=== PATIENT | male | born 1965 | race Caucasian/White ===

== ENCOUNTER 2017-03-19 13:53 | Inpatient (IN) | payer BC ==
[~2017-03-19] VITALS: Ht 188 cm; Wt 131.5 kg
[2017-03-19 14:45] LABS: BASO # 0.1 x10^3/uL (0.0-0.2); BASO % 1 % (0-3); EOS % 2 % (0-3); HEMATOCRIT 50.4 % (39.0-53.0); HEMOGLOBIN 17.4 g/dL (13.0-17.5); LYMPH # 4.5 x10^3/uL (1.0-4.8); LYMPH % 34 % (24-48); MEAN CORPUSCULAR HEMOGLOBIN 33 pg (25-35); MEAN CORPUSCULAR HGB CONC 34 g/dL (31-37); MEAN CORPUSCULAR VOLUME 96 fL (79-100); MONO % 8 % (0-9); NEUT % 55 % (31-73); PLATELET COUNT 310 x10^3/uL (140-400); RED BLOOD COUNT 5.28 x10^6/uL (4.30-5.70); RED CELL DISTRIBUTION WIDTH 13.2 % (11.5-14.5); WHITE BLOOD COUNT 13.2 x10^3/uL (4.0-11.0)
[2017-03-19] MEDS ORDERED: IV NORMAL SALINE 1000ML BAG 1,000 ML IV ONE (14:45)
[2017-03-19] MEDS ORDERED: LABETALOL 20 MG/4 ML DISP.SYRIN. IVP ONE ×2 (14:45→16:45)
--- NOTE | 2017-03-19 14:49 | RAD ---
Portable chest, 03/19/2017: History: High blood pressure, dizziness The heart size and pulmonary vascularity are normal. No pulmonary infiltrates are seen. There is no evidence of pleural fluid. IMPRESSION: No acute cardiopulmonary abnormality is detected.
[2017-03-19 14:56] LABS: CALCIUM 9.1 mg/dL (8.5-10.1); CREATININE 0.9 mg/dL (0.7-1.3); GFR 89.3; POTASSIUM 4.1 mmol/L (3.5-5.1)
[2017-03-19] MEDS ORDERED: IOHEXOL 300 MG/ML 100ML VIAL. IV ONE (15:00)
[2017-03-19 15:01] LABS: ALBUMIN 4.3 g/dL (3.4-5.0); ALBUMIN/GLOBULIN RATIO 1.2 (1.0-1.7); TOTAL BILIRUBIN 0.9 mg/dL (0.2-1.0); TOTAL PROTEIN 7.8 g/dL (6.4-8.2)
[2017-03-19] MEDS ORDERED: ONDANSETRON PF 4 MG/2 ML VIAL. IV ONE (15:15)
[2017-03-19] MEDS ORDERED: CONTRAST GIVEN MC PRN (15:30)
--- NOTE | 2017-03-19 15:40 | RAD ---
Clinical indications: Dizziness today. Hypertension. Technique: Noncontrast axial cross sectional scanning of the head was performed. RS Compliance Statement: One or more of the following individualized dose reduction techniques were utilized for this examination: 1. Automated exposure control 2. Adjustment of the mA and/or kV according to patient size 3. Use of iterative reconstruction technique Findings: No acute intracranial hemorrhage or midline shift or mass-effect or hydrocephalus or extra-axial fluid collection is seen. No focal hypodense area or sulci effacement is seen to indicate an acute infarct or edema radiographically. No skull fracture or pneumocephalus is seen. No opacification of the mastoid sinuses or the paranasal sinuses is seen. Impression: No acute intracranial abnormality is seen.
--- NOTE | 2017-03-19 15:41 | EKG ---
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
--- NOTE | 2017-03-19 16:09 | RAD ---
CTA of the head and neck with contrast, 03/19/2017: History: Dizziness, hypertension Multidetector CT imaging was performed following an IV bolus injection of iodinated contrast material. Multiplanar reconstructions were produced including coronal and sagittal MIP images. 3-D volume rendered reconstructions of the major arteries were also produced. There are mild scattered atherosclerotic plaques. The origins of the cervicocephalic arteries from the aortic arch are widely patent. Both common carotid arteries in the neck are widely patent. There is only minimal partially calcified plaquing at the carotid bifurcations without significant stenosis. Both internal carotid arteries in the neck and at the skull base are widely patent. There is mild calcific plaquing involving the cavernous segment of the distal right internal carotid artery without evidence of high-grade stenosis. There appears to be mild atherosclerotic irregularity of the proximal middle cerebral and anterior cerebral arteries. No occlusion or high-grade stenosis is identified. There is no evidence of aneurysm. The proximal vertebral arteries are partially obscured by artifacts. Both vertebral arteries are patent. The left vertebral artery is slightly dominant. The basilar artery is patent but generally somewhat small. The posterior cerebral arteries are patent. IMPRESSION: 1. Mild generalized atherosclerosis. 2. Minimal calcific plaquing at the carotid bifurcations without evidence of significant stenosis. 2. No occlusion or high-grade stenosis of the intracranial arteries is evident. PQRS Compliance Statement: One or more of the following individualized dose reduction techniques were utilized for this examination: 1. Automated exposure control 2. Adjustment of the mA and/or kV according to patient size 3. Use of iterative reconstruction technique
--- NOTE | 2017-03-19 16:53 | PHYS DOC ---
Past Medical History Past Medical History: No Pertinent History Past Surgical History: Other Additional Past Surgical Histo: Back surgery. Additional Information: Pt. chews tobacco. Additional Information: states, "I think he drinks too much." When pt. and asked if pt. drinks daily pt. states, "At least 2 a day." again states, "I think it is more than that. I think he drinks too much." Pt. 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 He got Very sweaty. He try closing his eyes to see the feeling will go away but he still felt like the room was spinning. His family also thought that maybe his blood sugar was low so they gave him some candy chocolate to the that didn't resolve any symptoms. Patient did not experience pain, no recent trauma. Review of Systems Review of Systems Constitutional: Denies fever or chills [] Eyes: Denies change in visual acuity, redness, or eye pain [] HENT: Denies headache Respiratory: Denies cough or shortness of breath [] Cardiovascular: No chest pain GI: Denies abdominal pain, vomiting, bloody stools or diarrhea. yes to nausea Musculoskeletal: Denies back pain or joint pain [] Integument: Denies rash or skin lesions [] Neurologic: Denies headache, focal weakness or sensory changes. Yes to dizziness , vertigo, generalized weakness All other systems were reviewed and found to be within normal limits, except as documented in this note. Current Medications Current Medications Current Medications Medications (Trade) Dose Ordered Sig/Edda Start Time Stop Time Status Last Admin Dose Admin Info (Do NOT chart on this entry -- for MONITORING) 1 each PRN DAILY PRN 03/19/17 15:30 03/21/17 15:29 Iohexol (Omnipaque 300 Mg/ml) 75 ml 1X ONCE 03/19/17 15:00 03/19/17 15:18 DC 03/19/17 15:23 75 ML Labetalol HCl (Normodyne) 20 mg 1X ONCE 03/19/17 16:45 03/19/17 16:46 DC Ondansetron HCl (Zofran) 4 mg 1X ONCE 03/19/17 15:15 03/19/17 15:18 DC Sodium Chloride 1,000 ml @ 1,000 mls/hr 1X ONCE 03/19/17 14:45 03/19/17 15:44 DC 03/19/17 16:06 1,000 MLS/HR Allergies Allergies Allergies Coded Allergies Type Severity Reaction Last Updated Verified No Known Drug Allergies 03/19/17 No Physical Exam Physical Exam Constitutional: Well developed, well nourished, mild distress, non-toxic appearance. [] HENT: Normocephalic, atraumatic, tympanic membranes normal, oropharynx dry, no oral exudates, nose normal. [] Eyes: PERRLA, EOMI, conjunctiva normal, no discharge. [] Nystagmus vertical and horizontal Neck: Normal range of motion, no tenderness, supple, no stridor. No LAD, no meningeal signs Cardiovascular:Heart rate regular rhythm, no murmur, normal pulses, normal perfusion Lungs & Thorax: Bilateral breath sounds clear to auscultation, no tachypnea Abdomen: Bowel sounds normal, soft, no tenderness, no masses, no pulsatile masses. [] Skin: Warm, dry, no erythema, no rash. [] Back: No tenderness, no CVA tenderness. [] Extremities: No tenderness, no DVT, ROM intact, no edema. [] Neurologic: Alert and oriented X 3, normal motor function except unsteady gait, normal sensory function, strength is equal and symmetric throughout my. Nares 3- 12 within normal limits. [id number] with some dysmetria bilaterally, alternating hand movements within normal limits, no pronator drift Psychologic: Affect normal, judgement normal, mood normal. [] Current Patient Data Vital Signs Vital Signs Date Time Temp Pulse Resp B/P (MAP) Pulse Ox O2 Delivery O2 Flow Rate FiO2 03/19/17 16:15 96 16 96 03/19/17 16:07 184/120 03/19/17 14:00 97.4 Room Air 97.4 Lab Values Laboratory Tests Test 03/19/17 14:06 03/19/17 14:07 Glucose (Fingerstick) 124 mg/dL (70-99) H White Blood Count 13.2 x10^3/uL (4.0-11.0) H Red Blood Count 5.28 x10^6/uL (4.30-5.70) Hemoglobin 17.4 g/dL (13.0-17.5) Hematocrit 50.4 % (39.0-53.0) Mean Corpuscular Volume 96 fL (79-100) Mean Corpuscular Hemoglobin 33 pg (25-35) Mean Corpuscular Hemoglobin Concent 34 g/dL (31-37) Red Cell Distribution Width 13.2 % (11.5-14.5) Platelet Count 310 x10^3/uL (140-400) Neutrophils (%) (Auto) 55 % (31-73) Lymphocytes (%) (Auto) 34 % (24-48) Monocytes (%) (Auto) 8 % (0-9) Eosinophils (%) (Auto) 2 % (0-3) Basophils (%) (Auto) 1 % (0-3) Neutrophils # (Auto) 7.2 x10^3uL (1.8-7.7) Lymphocytes # (Auto) 4.5 x10^3/uL (1.0-4.8) Monocytes # (Auto) 1.1 x10^3/uL (0.0-1.1) Eosinophils # (Auto) 0.3 x10^3/uL (0.0-0.7) Basophils # (Auto) 0.1 x10^3/uL (0.0-0.2) Sodium Level 143 mmol/L (136-145) Potassium Level 4.1 mmol/L (3.5-5.1) Chloride Level 102 mmol/L (98-107) Carbon Dioxide Level 26 mmol/L (21-32) Anion Gap 15 (6-14) H Blood Urea Nitrogen 15 mg/dL (8-26) Creatinine 0.9 mg/dL (0.7-1.3) Estimated GFR (Cockcroft-Gault) 89.3 BUN/Creatinine Ratio 17 (6-20) Glucose Level 125 mg/dL (70-99) H Calcium Level 9.1 mg/dL (8.5-10.1) Total Bilirubin 0.9 mg/dL (0.2-1.0) Aspartate Amino Transferase (AST) 132 U/L (15-37) H Alanine Aminotransferase (ALT) 151 U/L (16-63) H Alkaline Phosphatase 178 U/L (46-116) H Troponin I Quantitative < 0.017 ng/mL (0.000-0.055) Total Protein 7.8 g/dL (6.4-8.2) Albumin 4.3 g/dL (3.4-5.0) Albumin/Globulin Ratio 1.2 (1.0-1.7) Laboratory Tests 03/19/17 14:07 Laboratory Tests 03/19/17 14:07 EKG EKG 1412 sinus rhythm, 99, no STEMI[] Radiology/Procedures Radiology/Procedures CT: no acute findings, good flow observed[] Course & Med Decision Making Course & Med Decision Making Pertinent Labs and Imaging studies reviewed. (See chart for details) [] Dragon Disclaimer Dragon Disclaimer This electronic medical record was generated, in whole or in part, using a voice recognition dictation system. Departure Departure Impression: Primary Impression: Hypertensive emergency Additional Impression: TIA (transient ischemic attack) Disposition: ADMITTED INPATIENT Admitting Physician: Other Condition: STABLE Referrals: NO PCP (PCP) Problem Qualifiers Darian HAWKINS MD Mar 19, 2017 16:53
[2017-03-19 23:07] VITALS: BP 178/112
[2017-03-20] MEDS ORDERED: hydrALAZINE 20 MG/ML VIAL. IVP PRN (00:15)
--- NOTE | 2017-03-20 02:02 | HP ---
ADMIT DATE: 03/19/2017 CHIEF COMPLAINT: Dizziness. HISTORY OF PRESENT ILLNESS: The patient is a 52-year-old morbidly obese gentleman who does not follow up with physicians, who started feeling dizzy and nauseated while driving from his hometown 90 minutes away to go shopping with his family[place] symptoms were improved. He describes lightheadedness, dizziness with room spinning as if his eyes could not catch up with what was going on outside. He also started to be diaphoretic and nauseated. Family gave him chocolate thinking this may be related to low blood sugar (he is not a diabetic). He denies any recent pain, any vision problems, any shortness of breath or chest pain. PAST MEDICAL HISTORY: Suspected hypertension, lumbar disk prolapse, status post back surgery. FAMILY HISTORY: Positive for diabetes, hypertension. SOCIAL HISTORY: Lives with his family. Typically drinks 2-4 alcoholic beverages, mainly whiskey daily. Denies any smoking, but does chew tobacco. ALLERGIES: No known drug allergies. MEDICATIONS: No home medications. REVIEW OF SYSTEMS: Positive as per HPI. The entire organ system review otherwise was negative. PHYSICAL EXAMINATION: VITAL SIGNS: Show a blood pressure of 184/120, respiratory rate at 18, pulse at 84. GENERAL: This is a morbidly obese 52-year-old gentleman, alert and oriented, in no acute distress. HEENT: Shows no scleral icterus. NECK: Supple, without any lymphadenopathy or JVD. LUNGS: Clear to auscultation bilaterally. HEART: Regular rate and rhythm without any murmurs. ABDOMEN: Massively obese, positive bowel sounds. Organs could not be palpated. EXTREMITIES: Show no edema. SKIN: Warm, soft and dry without any rash. LABORATORY DATA: CBC with a WBC of 13.2, hemoglobin 17.4, platelets of 310. Chemistries with a BUN and creatinine of 15 and 0.9, normal electrolytes. LFTs with elevated transaminases at 132 and 151 and alkaline phosphatase at 178, total bilirubin at 0.9. Initial troponin is negative. IMAGING STUDIES: CT of the head and neck shows mild generalized atherosclerosis. No occlusion or high grade stenosis of intracranial arteries. A CT of the head without contrast showed no acute intracranial abnormality. Chest x-ray, no cardiopulmonary abnormality. ASSESSMENT AND PLAN: The patient is a 52-year-old gentleman with vertigo-type symptoms. We will obtain Neurology consult to help elucidate. Also, have to rule out transient ischemic attack/cerebrovascular accident given his extremely poorly controlled blood pressure. CT so far was negative. Consider MRI of the brain as well. Blood pressure is the main issue currently. We will start him on p.o. medications in the morning. He is receiving p.r.n. IV medications for now. We will allow permissive hypertension with goal of 170 for now. RONALDO VICTORIA MD DR: UR/nts JOB#: [id number] / [id number]
[2017-03-20 02:51] VITALS: BP 158/112
[2017-03-20 07:00] VITALS: BP 164/116
[2017-03-20 08:49] LABS: BASO # 0.1 x10^3/uL (0.0-0.2); BASO % 1 % (0-3); EOS % 3 % (0-3); HEMATOCRIT 48.2 % (39.0-53.0); HEMOGLOBIN 16.5 g/dL (13.0-17.5); LYMPH # 2.7 x10^3/uL (1.0-4.8); LYMPH % 28 % (24-48); MEAN CORPUSCULAR HEMOGLOBIN 33 pg (25-35); MEAN CORPUSCULAR HGB CONC 34 g/dL (31-37); MEAN CORPUSCULAR VOLUME 95 fL (79-100); MONO % 7 % (0-9); NEUT % 61 % (31-73); PLATELET COUNT 273 x10^3/uL (140-400); RED BLOOD COUNT 5.06 x10^6/uL (4.30-5.70); WHITE BLOOD COUNT 9.4 x10^3/uL (4.0-11.0)
[2017-03-20] MEDS ORDERED: ASPIRIN 325 MG TABLET PO SCH (09:00)
[2017-03-20] MEDS ORDERED: LISINOPRIL 20 MG TABLET PO SCH (09:00)
[2017-03-20] MEDS ORDERED: INFLUENZA VAX SCREEN BY RX. MC ONE (09:00)
[2017-03-20] MEDS ORDERED: ACETAMINOPHEN 650 MG SUPP.RECT. PR PRN (09:00)
[2017-03-20] MEDS ORDERED: FLU VACC QS2017-18 (36MOS+)/PF 0.5 ML SYRINGE. VAX IM ONE (09:00)
[2017-03-20] MEDS ORDERED: ACETAMINOPHEN 325 MG TABLET. PO PRN (09:00)
[2017-03-20 09:15] LABS: ALBUMIN 3.7 g/dL (3.4-5.0); ALBUMIN/GLOBULIN RATIO 0.9 (1.0-1.7); CALCIUM 8.4 mg/dL (8.5-10.1); CREATININE 0.9 mg/dL (0.7-1.3); GFR 89.3; POTASSIUM 3.8 mmol/L (3.5-5.1); TOTAL BILIRUBIN 0.9 mg/dL (0.2-1.0); TOTAL PROTEIN 7.7 g/dL (6.4-8.2)
[2017-03-20 09:43] LABS: CHOLESTEROL/HDL RATIO 3.7
[2017-03-20] MEDS ORDERED: ENOXAPARIN 40 MG/0.4 ML SYRINGE. SQ SCH (10:00)
--- NOTE | 2017-03-20 10:16 | PDOC2 ---
NEUROLOGY CONSULT Date of Admission Date of Admission DATE: 03/20/17 TIME: 10:11 Reason for Consult Reason for Consult: Stroke symptoms Referring Physician Referring Physician: Dr. Uriostegui Source Source: Caregiver, Chart review, Patient History of Present Illness History of Present Illness The patient is a 52-year-old right-handed male with history of hypertension who admits that he has not seen a doctor in a while. He was here in [place] for some shopping from his hometown in [place]. He was driving along and noticed diplopia, vertigo, and dysarthria. He pulled over and [employer] ask if they wanted transport, but the family drove them to the hospital. In the amount' s department here his blood pressure was 237/105. The patient feels much better now. [place] was not considered because of rapid recent solution of symptoms and suspicion for hypertensive encephalopathy rather than stroke. There is no prior history of stroke, seizure, or head injury. 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 Current Medications Current Medications Current Medications Sodium Chloride 1,000 ml @ 1,000 mls/hr 1X ONCE IV Last administered on 03/19 16:06; Start 03/19/17 at 14:45; Stop 03/19/17 at 15:44; Status DC Labetalol HCl (Normodyne) 10 mg 1X ONCE IVP Last administered on 03/19/17 16 :07; Start 03/19/17 at 14:45; Stop 03/19/17 at 15:18; Status DC Iohexol (Omnipaque 300 Mg/ml) 75 ml 1X ONCE IV Last administered on 15:23; Start 03/19/17 at 15:00; Stop 03/19/17 at 15:18; Status DC Ondansetron HCl (Zofran) 4 mg 1X ONCE IV ; Start 03/19/17 at 15:15; Stop at 15:18; Status DC Info (Do NOT chart on this entry -- for MONITORING) 1 each PRN DAILY PRN MC SEE COMMENTS; Start 03/19/17 at 15:30; Stop 03/21/17 at 15:29 Labetalol HCl (Normodyne) 20 mg 1X ONCE IVP Last administered on 03/19/17 18 :09; Start 03/19/17 at 16:45; Stop 03/19/17 at 16:46; Status DC Info (Do NOT chart on this placeholder) 0.5 each 1X ONCE MC ; Start 03/20/17 at 09:00; Stop 03/20/17 at 09:01; Status UNV Influenza Virus Vaccine Quadrival (Fluarix Quad [id number] Syringe) 0.5 ml ONCE ONCE VAX IM ; Start 03/20/17 at 09:00; Stop 03/20/17 at 09:01; Status DC Lisinopril (Prinivil) 20 mg DAILY PO Last administered on 03/20/17 09:47; Start 03/20/17 at 09:00 Hydralazine HCl (Apresoline Inj) 10 mg PRN Q4HRS PRN IVP SBP >170; Start 03/20 at 00:15 Enoxaparin Sodium (Lovenox 40mg Syringe) 40 mg Q24H SQ Last administered on 09:52; Start 03/20/17 at 10:00 Acetaminophen (Tylenol) 650 mg PRN Q6HRS PRN PO TEMP > 100.4F; Start 03/20/17 at 09:00 Acetaminophen (Acetaminophen Supp) 650 mg PRN Q4HRS PRN DC TEMP > 100.4F; Start 03/20/17 at 09:00 Aspirin (Kanika Aspirin) 325 mg DAILYWBKFT PO Last administered on 03/20/17 09 :52; Start 03/20/17 at 09:00 Atorvastatin Calcium (Lipitor) 10 mg QHS PO ; Start 03/20/17 at 21:00 Allergies Allergies: Coded Allergies: No Known Drug Allergies (Unverified , 03/19/17) ROS Review of System Negative for fevers, chills, weight loss, shortness of breath, chest pain, indigestion, hematochezia, melena, dysuria. Full 14-point review systems is negative. Physical Exam Physical Examination PHYSICAL EXAMINATION: Vital signs: see above. General appearance is normal and in no acute distress. HEENT: Normocephalic and nontraumatic. Eyes, nose, ears, and throat are unremarkable. Neck is supple. No lymphadenopathy. No bruits are heard over the carotid artery. No crepitus. NEUROLOGICAL EXAMINATION: Mental Status Examination: Alert. Oriented to time, place, and person. Answers questions and follows commends. Pupils are equal round and reactive to light and accommodation. Funduscopic exam: No papilledema. Extraocular movements are intact. Visual field exam shows no defect on the direct confrontation. No motor or sensory deficits on the facial exam. Uvula in the midline and the soft palate elevated symmetrically. No deviation of the tongue to any direction. Gross hearing is normal. Shoulder shrug normal. Muscle tone is normal. Muscle strength is 5. Deep tendon reflexes are 2+ all around. Plantar reflex is with flexion response bilaterally. [id number] test performance is accurate. Tandem walk test is a little off. Alternative movements are accurate. Romberg test is negative. Gait is normal. Sensory exam shows no deficits. No cerebellar signs are elicited. Vitals VITALS Vital Signs Date Time Temp Pulse Resp B/P (MAP) Pulse Ox O2 Delivery O2 Flow Rate FiO2 03/20/17 09:47 84 164/116 03/20/17 07:00 97.9 20 95 Room Air 97.9 Labs Labs Laboratory Tests Test 03/19/17 14:06 03/19/17 14:07 03/20/17 07:40 Glucose (Fingerstick) 124 mg/dL (70-99) White Blood Count 13.2 x10^3/uL (4.0-11.0) 9.4 x10^3/uL (4.0-11.0) Red Blood Count 5.28 x10^6/uL (4.30-5.70) 5.06 x10^6/uL (4.30-5.70) Hemoglobin 17.4 g/dL (13.0-17.5) 16.5 g/dL (13.0-17.5) Hematocrit 50.4 % (39.0-53.0) 48.2 % (39.0-53.0) Mean Corpuscular Volume 96 fL (79-100) 95 fL (79-100) Mean Corpuscular Hemoglobin 33 pg (25-35) 33 pg (25-35) Mean Corpuscular Hemoglobin Concent 34 g/dL (31-37) 34 g/dL (31-37) Red Cell Distribution Width 13.2 % (11.5-14.5) 13.0 % (11.5-14.5) Platelet Count 310 x10^3/uL (140-400) 273 x10^3/uL (140-400) Neutrophils (%) (Auto) 55 % (31-73) 61 % (31-73) Lymphocytes (%) (Auto) 34 % (24-48) 28 % (24-48) Monocytes (%) (Auto) 8 % (0-9) 7 % (0-9) Eosinophils (%) (Auto) 2 % (0-3) 3 % (0-3) Basophils (%) (Auto) 1 % (0-3) 1 % (0-3) Neutrophils # (Auto) 7.2 x10^3uL (1.8-7.7) 5.7 x10^3uL (1.8-7.7) Lymphocytes # (Auto) 4.5 x10^3/uL (1.0-4.8) 2.7 x10^3/uL (1.0-4.8) Monocytes # (Auto) 1.1 x10^3/uL (0.0-1.1) 0.7 x10^3/uL (0.0-1.1) Eosinophils # (Auto) 0.3 x10^3/uL (0.0-0.7) 0.3 x10^3/uL (0.0-0.7) Basophils # (Auto) 0.1 x10^3/uL (0.0-0.2) 0.1 x10^3/uL (0.0-0.2) Sodium Level 143 mmol/L (136-145) 136 mmol/L (136-145) Potassium Level 4.1 mmol/L (3.5-5.1) 3.8 mmol/L (3.5-5.1) Chloride Level 102 mmol/L (98-107) 101 mmol/L (98-107) Carbon Dioxide Level 26 mmol/L (21-32) 27 mmol/L (21-32) Anion Gap 15 (6-14) 8 (6-14) Blood Urea Nitrogen 15 mg/dL (8-26) 11 mg/dL (8-26) Creatinine 0.9 mg/dL (0.7-1.3) 0.9 mg/dL (0.7-1.3) Estimated GFR (Cockcroft-Gault) 89.3 89.3 BUN/Creatinine Ratio 17 (6-20) 12 (6-20) Glucose Level 125 mg/dL (70-99) 137 mg/dL (70-99) Calcium Level 9.1 mg/dL (8.5-10.1) 8.4 mg/dL (8.5-10.1) Total Bilirubin 0.9 mg/dL (0.2-1.0) 0.9 mg/dL (0.2-1.0) Aspartate Amino Transf (AST/SGOT) 132 U/L (15-37) 75 U/L (15-37) Alanine Aminotransferase (ALT/SGPT) 151 U/L (16-63) 118 U/L (16-63) Alkaline Phosphatase 178 U/L (46-116) 138 U/L (46-116) Troponin I Quantitative < 0.017 ng/mL (0.000-0.055) Total Protein 7.8 g/dL (6.4-8.2) 7.7 g/dL (6.4-8.2) Albumin 4.3 g/dL (3.4-5.0) 3.7 g/dL (3.4-5.0) Albumin/Globulin Ratio 1.2 (1.0-1.7) 0.9 (1.0-1.7) Triglycerides Level 134 mg/dL (0-150) Cholesterol Level 201 mg/dL (0-200) LDL Cholesterol, Calculated 119 mg/dL (0-100) VLDL Cholesterol, Calculated 27 mg/dL (0-40) Non-HDL Cholesterol Calculated 146 mg/dL (0-129) HDL Cholesterol 55 mg/dL (40-60) Cholesterol/HDL Ratio 3.7 Laboratory Tests Test 03/19/17 14:06 03/19/17 14:07 03/20/17 07:40 Glucose (Fingerstick) 124 mg/dL (70-99) White Blood Count 13.2 x10^3/uL (4.0-11.0) 9.4 x10^3/uL (4.0-11.0) Red Blood Count 5.28 x10^6/uL (4.30-5.70) 5.06 x10^6/uL (4.30-5.70) Hemoglobin 17.4 g/dL (13.0-17.5) 16.5 g/dL (13.0-17.5) Hematocrit 50.4 % (39.0-53.0) 48.2 % (39.0-53.0) Mean Corpuscular Volume 96 fL (79-100) 95 fL (79-100) Mean Corpuscular Hemoglobin 33 pg (25-35) 33 pg (25-35) Mean Corpuscular Hemoglobin Concent 34 g/dL (31-37) 34 g/dL (31-37) Red Cell Distribution Width 13.2 % (11.5-14.5) 13.0 % (11.5-14.5) Platelet Count 310 x10^3/uL (140-400) 273 x10^3/uL (140-400) Neutrophils (%) (Auto) 55 % (31-73) 61 % (31-73) Lymphocytes (%) (Auto) 34 % (24-48) 28 % (24-48) Monocytes (%) (Auto) 8 % (0-9) 7 % (0-9) Eosinophils (%) (Auto) 2 % (0-3) 3 % (0-3) Basophils (%) (Auto) 1 % (0-3) 1 % (0-3) Neutrophils # (Auto) 7.2 x10^3uL (1.8-7.7) 5.7 x10^3uL (1.8-7.7) Lymphocytes # (Auto) 4.5 x10^3/uL (1.0-4.8) 2.7 x10^3/uL (1.0-4.8) Monocytes # (Auto) 1.1 x10^3/uL (0.0-1.1) 0.7 x10^3/uL (0.0-1.1) Eosinophils # (Auto) 0.3 x10^3/uL (0.0-0.7) 0.3 x10^3/uL (0.0-0.7) Basophils # (Auto) 0.1 x10^3/uL (0.0-0.2) 0.1 x10^3/uL (0.0-0.2) Sodium Level 143 mmol/L (136-145) 136 mmol/L (136-145) Potassium Level 4.1 mmol/L (3.5-5.1) 3.8 mmol/L (3.5-5.1) Chloride Level 102 mmol/L (98-107) 101 mmol/L (98-107) Carbon Dioxide Level 26 mmol/L (21-32) 27 mmol/L (21-32) Anion Gap 15 (6-14) 8 (6-14) Blood Urea Nitrogen 15 mg/dL (8-26) 11 mg/dL (8-26) Creatinine 0.9 mg/dL (0.7-1.3) 0.9 mg/dL (0.7-1.3) Estimated GFR (Cockcroft-Gault) 89.3 89.3 BUN/Creatinine Ratio 17 (6-20) 12 (6-20) Glucose Level 125 mg/dL (70-99) 137 mg/dL (70-99) Calcium Level 9.1 mg/dL (8.5-10.1) 8.4 mg/dL (8.5-10.1) Total Bilirubin 0.9 mg/dL (0.2-1.0) 0.9 mg/dL (0.2-1.0) Aspartate Amino Transf (AST/SGOT) 132 U/L (15-37) 75 U/L (15-37) Alanine Aminotransferase (ALT/SGPT) 151 U/L (16-63) 118 U/L (16-63) Alkaline Phosphatase 178 U/L (46-116) 138 U/L (46-116) Troponin I Quantitative < 0.017 ng/mL (0.000-0.055) Total Protein 7.8 g/dL (6.4-8.2) 7.7 g/dL (6.4-8.2) Albumin 4.3 g/dL (3.4-5.0) 3.7 g/dL (3.4-5.0) Albumin/Globulin Ratio 1.2 (1.0-1.7) 0.9 (1.0-1.7) Triglycerides Level 134 mg/dL (0-150) Cholesterol Level 201 mg/dL (0-200) LDL Cholesterol, Calculated 119 mg/dL (0-100) VLDL Cholesterol, Calculated 27 mg/dL (0-40) Non-HDL Cholesterol Calculated 146 mg/dL (0-129) HDL Cholesterol 55 mg/dL (40-60) Cholesterol/HDL Ratio 3.[address] head: Findings: No acute intracranial hemorrhage or midline shift or mass-effect or hydrocephalus or extra-axial fluid collection is seen. No focal hypodense area or sulci effacement is seen to indicate an acute infarct or edema radiographically. No skull fracture or pneumocephalus is seen. No opacification of the mastoid sinuses or the paranasal sinuses is seen. Impression: No acute intracranial abnormality is seen. CT angiogram head and neck: There are mild scattered atherosclerotic plaques. The origins of the cervicocephalic arteries from the aortic arch are widely patent. Both common carotid arteries in the neck are widely patent. There is only minimal partially calcified plaquing at the carotid bifurcations without significant stenosis. Both internal carotid arteries in the neck and at the skull base are widely patent. There is mild calcific plaquing involving the cavernous segment of the distal right internal carotid artery without evidence of high-grade stenosis. There appears to be mild atherosclerotic irregularity of the proximal middle cerebral and anterior cerebral arteries. No occlusion or high-grade stenosis is identified. There is no evidence of aneurysm. The proximal vertebral arteries are partially obscured by artifacts. Both vertebral arteries are patent. The left vertebral artery is slightly dominant. The basilar artery is patent but generally somewhat small. The posterior cerebral arteries are patent. IMPRESSION: 1. Mild generalized atherosclerosis. 2. Minimal calcific plaquing at the carotid bifurcations without evidence of significant stenosis. 2. No occlusion or high-grade stenosis of the intracranial arteries is evident. Assessment/Plan Assessment/Plan Impression: Stroke symptoms related to hypertension, doubt that he had a stroke or transient ischemic attack. He did not require alteplase because of rapid resolution of symptoms and lack of suspicion for stroke. Hypertension Recommendations: Await brain MRI Echocardiogram Does not need carotids Doppler studies because they were examined with the CT angiogram. Aspirin Statin Check lipids Rehabilitation screening Aim for discharge later today of tests are negative. I discussed the importance of compliance with medications. Thank you for letting me help with the patient's care. KEM BARR MD Mar 20, 2017 10:16
--- NOTE | 2017-03-20 10:50 | PDOC ---
PROGRESS NOTES Chief Complaint Chief Complaint HTN History of Present Illness History of Present Illness Patient seen by neuro and agree that stroke sx are HTN related. Await results of brain MRI and if tests are negative then agree with subspecialist input okay to d/c today. Vitals Vitals Vital Signs Date Time Temp Pulse Resp B/P (MAP) Pulse Ox O2 Delivery O2 Flow Rate FiO2 03/20/17 09:47 84 164/116 03/20/17 07:00 97.9 20 95 Room Air 97.9 Physical Exam General: Alert, Oriented X3, Cooperative Heart: Regular rate Lungs: Clear Extremities: No clubbing, No cyanosis Skin: No rashes Labs LABS Laboratory Tests Test 03/19/17 14:06 03/19/17 14:07 03/20/17 07:40 Glucose (Fingerstick) 124 mg/dL (70-99) White Blood Count 13.2 x10^3/uL (4.0-11.0) 9.4 x10^3/uL (4.0-11.0) Red Blood Count 5.28 x10^6/uL (4.30-5.70) 5.06 x10^6/uL (4.30-5.70) Hemoglobin 17.4 g/dL (13.0-17.5) 16.5 g/dL (13.0-17.5) Hematocrit 50.4 % (39.0-53.0) 48.2 % (39.0-53.0) Mean Corpuscular Volume 96 fL (79-100) 95 fL (79-100) Mean Corpuscular Hemoglobin 33 pg (25-35) 33 pg (25-35) Mean Corpuscular Hemoglobin Concent 34 g/dL (31-37) 34 g/dL (31-37) Red Cell Distribution Width 13.2 % (11.5-14.5) 13.0 % (11.5-14.5) Platelet Count 310 x10^3/uL (140-400) 273 x10^3/uL (140-400) Neutrophils (%) (Auto) 55 % (31-73) 61 % (31-73) Lymphocytes (%) (Auto) 34 % (24-48) 28 % (24-48) Monocytes (%) (Auto) 8 % (0-9) 7 % (0-9) Eosinophils (%) (Auto) 2 % (0-3) 3 % (0-3) Basophils (%) (Auto) 1 % (0-3) 1 % (0-3) Neutrophils # (Auto) 7.2 x10^3uL (1.8-7.7) 5.7 x10^3uL (1.8-7.7) Lymphocytes # (Auto) 4.5 x10^3/uL (1.0-4.8) 2.7 x10^3/uL (1.0-4.8) Monocytes # (Auto) 1.1 x10^3/uL (0.0-1.1) 0.7 x10^3/uL (0.0-1.1) Eosinophils # (Auto) 0.3 x10^3/uL (0.0-0.7) 0.3 x10^3/uL (0.0-0.7) Basophils # (Auto) 0.1 x10^3/uL (0.0-0.2) 0.1 x10^3/uL (0.0-0.2) Sodium Level 143 mmol/L (136-145) 136 mmol/L (136-145) Potassium Level 4.1 mmol/L (3.5-5.1) 3.8 mmol/L (3.5-5.1) Chloride Level 102 mmol/L (98-107) 101 mmol/L (98-107) Carbon Dioxide Level 26 mmol/L (21-32) 27 mmol/L (21-32) Anion Gap 15 (6-14) 8 (6-14) Blood Urea Nitrogen 15 mg/dL (8-26) 11 mg/dL (8-26) Creatinine 0.9 mg/dL (0.7-1.3) 0.9 mg/dL (0.7-1.3) Estimated GFR (Cockcroft-Gault) 89.3 89.3 BUN/Creatinine Ratio 17 (6-20) 12 (6-20) Glucose Level 125 mg/dL (70-99) 137 mg/dL (70-99) Calcium Level 9.1 mg/dL (8.5-10.1) 8.4 mg/dL (8.5-10.1) Total Bilirubin 0.9 mg/dL (0.2-1.0) 0.9 mg/dL (0.2-1.0) Aspartate Amino Transf (AST/SGOT) 132 U/L (15-37) 75 U/L (15-37) Alanine Aminotransferase (ALT/SGPT) 151 U/L (16-63) 118 U/L (16-63) Alkaline Phosphatase 178 U/L (46-116) 138 U/L (46-116) Troponin I Quantitative < 0.017 ng/mL (0.000-0.055) Total Protein 7.8 g/dL (6.4-8.2) 7.7 g/dL (6.4-8.2) Albumin 4.3 g/dL (3.4-5.0) 3.7 g/dL (3.4-5.0) Albumin/Globulin Ratio 1.2 (1.0-1.7) 0.9 (1.0-1.7) Triglycerides Level 134 mg/dL (0-150) Cholesterol Level 201 mg/dL (0-200) LDL Cholesterol, Calculated 119 mg/dL (0-100) VLDL Cholesterol, Calculated 27 mg/dL (0-40) Non-HDL Cholesterol Calculated 146 mg/dL (0-129) HDL Cholesterol 55 mg/dL (40-60) Cholesterol/HDL Ratio 3.7 Review of Systems Review of Systems Patient denies dizziness Patient denies [place] Patient denies nausea Assessment and Plan Assessmemt and Plan Problems Medical Problems: (1) TIA (transient ischemic attack) Status: Acute Assessment: HTN Plan: Await results of brain MRI Home meds Recheck labs PO anti-HTN meds Start ASA, stain PT/OT Encourage medication compliance Outpt f/u with PCP Okay to d/c home when approved by subspecialist Problems: Comment Review of Relevant I have reviewed the following items faraz (where applicable) has been applied. Labs Laboratory Tests Test 03/19/17 14:06 03/19/17 14:07 03/20/17 07:40 Glucose (Fingerstick) 124 mg/dL (70-99) White Blood Count 13.2 x10^3/uL (4.0-11.0) 9.4 x10^3/uL (4.0-11.0) Red Blood Count 5.28 x10^6/uL (4.30-5.70) 5.06 x10^6/uL (4.30-5.70) Hemoglobin 17.4 g/dL (13.0-17.5) 16.5 g/dL (13.0-17.5) Hematocrit 50.4 % (39.0-53.0) 48.2 % (39.0-53.0) Mean Corpuscular Volume 96 fL (79-100) 95 fL (79-100) Mean Corpuscular Hemoglobin 33 pg (25-35) 33 pg (25-35) Mean Corpuscular Hemoglobin Concent 34 g/dL (31-37) 34 g/dL (31-37) Red Cell Distribution Width 13.2 % (11.5-14.5) 13.0 % (11.5-14.5) Platelet Count 310 x10^3/uL (140-400) 273 x10^3/uL (140-400) Neutrophils (%) (Auto) 55 % (31-73) 61 % (31-73) Lymphocytes (%) (Auto) 34 % (24-48) 28 % (24-48) Monocytes (%) (Auto) 8 % (0-9) 7 % (0-9) Eosinophils (%) (Auto) 2 % (0-3) 3 % (0-3) Basophils (%) (Auto) 1 % (0-3) 1 % (0-3) Neutrophils # (Auto) 7.2 x10^3uL (1.8-7.7) 5.7 x10^3uL (1.8-7.7) Lymphocytes # (Auto) 4.5 x10^3/uL (1.0-4.8) 2.7 x10^3/uL (1.0-4.8) Monocytes # (Auto) 1.1 x10^3/uL (0.0-1.1) 0.7 x10^3/uL (0.0-1.1) Eosinophils # (Auto) 0.3 x10^3/uL (0.0-0.7) 0.3 x10^3/uL (0.0-0.7) Basophils # (Auto) 0.1 x10^3/uL (0.0-0.2) 0.1 x10^3/uL (0.0-0.2) Sodium Level 143 mmol/L (136-145) 136 mmol/L (136-145) Potassium Level 4.1 mmol/L (3.5-5.1) 3.8 mmol/L (3.5-5.1) Chloride Level 102 mmol/L (98-107) 101 mmol/L (98-107) Carbon Dioxide Level 26 mmol/L (21-32) 27 mmol/L (21-32) Anion Gap 15 (6-14) 8 (6-14) Blood Urea Nitrogen 15 mg/dL (8-26) 11 mg/dL (8-26) Creatinine 0.9 mg/dL (0.7-1.3) 0.9 mg/dL (0.7-1.3) Estimated GFR (Cockcroft-Gault) 89.3 89.3 BUN/Creatinine Ratio 17 (6-20) 12 (6-20) Glucose Level 125 mg/dL (70-99) 137 mg/dL (70-99) Calcium Level 9.1 mg/dL (8.5-10.1) 8.4 mg/dL (8.5-10.1) Total Bilirubin 0.9 mg/dL (0.2-1.0) 0.9 mg/dL (0.2-1.0) Aspartate Amino Transf (AST/SGOT) 132 U/L (15-37) 75 U/L (15-37) Alanine Aminotransferase (ALT/SGPT) 151 U/L (16-63) 118 U/L (16-63) Alkaline Phosphatase 178 U/L (46-116) 138 U/L (46-116) Troponin I Quantitative < 0.017 ng/mL (0.000-0.055) Total Protein 7.8 g/dL (6.4-8.2) 7.7 g/dL (6.4-8.2) Albumin 4.3 g/dL (3.4-5.0) 3.7 g/dL (3.4-5.0) Albumin/Globulin Ratio 1.2 (1.0-1.7) 0.9 (1.0-1.7) Triglycerides Level 134 mg/dL (0-150) Cholesterol Level 201 mg/dL (0-200) LDL Cholesterol, Calculated 119 mg/dL (0-100) VLDL Cholesterol, Calculated 27 mg/dL (0-40) Non-HDL Cholesterol Calculated 146 mg/dL (0-129) HDL Cholesterol 55 mg/dL (40-60) Cholesterol/HDL Ratio 3.7 Laboratory Tests Test 03/19/17 14:06 03/19/17 14:07 03/20/17 07:40 Glucose (Fingerstick) 124 mg/dL (70-99) White Blood Count 13.2 x10^3/uL (4.0-11.0) 9.4 x10^3/uL (4.0-11.0) Red Blood Count 5.28 x10^6/uL (4.30-5.70) 5.06 x10^6/uL (4.30-5.70) Hemoglobin 17.4 g/dL (13.0-17.5) 16.5 g/dL (13.0-17.5) Hematocrit 50.4 % (39.0-53.0) 48.2 % (39.0-53.0) Mean Corpuscular Volume 96 fL (79-100) 95 fL (79-100) Mean Corpuscular Hemoglobin 33 pg (25-35) 33 pg (25-35) Mean Corpuscular Hemoglobin Concent 34 g/dL (31-37) 34 g/dL (31-37) Red Cell Distribution Width 13.2 % (11.5-14.5) 13.0 % (11.5-14.5) Platelet Count 310 x10^3/uL (140-400) 273 x10^3/uL (140-400) Neutrophils (%) (Auto) 55 % (31-73) 61 % (31-73) Lymphocytes (%) (Auto) 34 % (24-48) 28 % (24-48) Monocytes (%) (Auto) 8 % (0-9) 7 % (0-9) Eosinophils (%) (Auto) 2 % (0-3) 3 % (0-3) Basophils (%) (Auto) 1 % (0-3) 1 % (0-3) Neutrophils # (Auto) 7.2 x10^3uL (1.8-7.7) 5.7 x10^3uL (1.8-7.7) Lymphocytes # (Auto) 4.5 x10^3/uL (1.0-4.8) 2.7 x10^3/uL (1.0-4.8) Monocytes # (Auto) 1.1 x10^3/uL (0.0-1.1) 0.7 x10^3/uL (0.0-1.1) Eosinophils # (Auto) 0.3 x10^3/uL (0.0-0.7) 0.3 x10^3/uL (0.0-0.7) Basophils # (Auto) 0.1 x10^3/uL (0.0-0.2) 0.1 x10^3/uL (0.0-0.2) Sodium Level 143 mmol/L (136-145) 136 mmol/L (136-145) Potassium Level 4.1 mmol/L (3.5-5.1) 3.8 mmol/L (3.5-5.1) Chloride Level 102 mmol/L (98-107) 101 mmol/L (98-107) Carbon Dioxide Level 26 mmol/L (21-32) 27 mmol/L (21-32) Anion Gap 15 (6-14) 8 (6-14) Blood Urea Nitrogen 15 mg/dL (8-26) 11 mg/dL (8-26) Creatinine 0.9 mg/dL (0.7-1.3) 0.9 mg/dL (0.7-1.3) Estimated GFR (Cockcroft-Gault) 89.3 89.3 BUN/Creatinine Ratio 17 (6-20) 12 (6-20) Glucose Level 125 mg/dL (70-99) 137 mg/dL (70-99) Calcium Level 9.1 mg/dL (8.5-10.1) 8.4 mg/dL (8.5-10.1) Total Bilirubin 0.9 mg/dL (0.2-1.0) 0.9 mg/dL (0.2-1.0) Aspartate Amino Transf (AST/SGOT) 132 U/L (15-37) 75 U/L (15-37) Alanine Aminotransferase (ALT/SGPT) 151 U/L (16-63) 118 U/L (16-63) Alkaline Phosphatase 178 U/L (46-116) 138 U/L (46-116) Troponin I Quantitative < 0.017 ng/mL (0.000-0.055) Total Protein 7.8 g/dL (6.4-8.2) 7.7 g/dL (6.4-8.2) Albumin 4.3 g/dL (3.4-5.0) 3.7 g/dL (3.4-5.0) Albumin/Globulin Ratio 1.2 (1.0-1.7) 0.9 (1.0-1.7) Triglycerides Level 134 mg/dL (0-150) Cholesterol Level 201 mg/dL (0-200) LDL Cholesterol, Calculated 119 mg/dL (0-100) VLDL Cholesterol, Calculated 27 mg/dL (0-40) Non-HDL Cholesterol Calculated 146 mg/dL (0-129) HDL Cholesterol 55 mg/dL (40-60) Cholesterol/HDL Ratio 3.7 Medications Current Medications Sodium Chloride 1,000 ml @ 1,000 mls/hr 1X ONCE IV Last administered on 03/19 16:06; Start 03/19/17 at 14:45; Stop 03/19/17 at 15:44; Status DC Labetalol HCl (Normodyne) 10 mg 1X ONCE IVP Last administered on 03/19/17 16 :07; Start 03/19/17 at 14:45; Stop 03/19/17 at 15:18; Status DC Iohexol (Omnipaque 300 Mg/ml) 75 ml 1X ONCE IV Last administered on 15:23; Start 03/19/17 at 15:00; Stop 03/19/17 at 15:18; Status DC Ondansetron HCl (Zofran) 4 mg 1X ONCE IV ; Start 03/19/17 at 15:15; Stop at 15:18; Status DC Info (Do NOT chart on this entry -- for MONITORING) 1 each PRN DAILY PRN MC SEE COMMENTS; Start 03/19/17 at 15:30; Stop 03/21/17 at 15:29 Labetalol HCl (Normodyne) 20 mg 1X ONCE IVP Last administered on 03/19/17 18 :09; Start 03/19/17 at 16:45; Stop 03/19/17 at 16:46; Status DC Info (Do NOT chart on this placeholder) 0.5 each 1X ONCE MC ; Start 03/20/17 at 09:00; Stop 03/20/17 at 09:01; Status UNV Influenza Virus Vaccine Quadrival (Fluarix Quad [id number] Syringe) 0.5 ml ONCE ONCE VAX IM ; Start 03/20/17 at 09:00; Stop 03/20/17 at 09:01; Status DC Lisinopril (Prinivil) 20 mg DAILY PO Last administered on 03/20/17 09:47; Start 03/20/17 at 09:00 Hydralazine HCl (Apresoline Inj) 10 mg PRN Q4HRS PRN IVP SBP >170; Start 03/20 at 00:15 Enoxaparin Sodium (Lovenox 40mg Syringe) 40 mg Q24H SQ Last administered on 09:52; Start 03/20/17 at 10:00 Acetaminophen (Tylenol) 650 mg PRN Q6HRS PRN PO TEMP > 100.4F; Start 03/20/17 at 09:00 Acetaminophen (Acetaminophen Supp) 650 mg PRN Q4HRS PRN [place] TEMP > 100.4F; Start 03/20/17 at 09:00 Aspirin (Kanika Aspirin) 325 mg DAILYWBKFT PO Last administered on 03/20/17 09 :52; Start 03/20/17 at 09:00 Atorvastatin Calcium (Lipitor) 10 mg QHS PO ; Start 03/20/17 at 21:00 Vitals/I & O Vital Sign - Last 24 Hours 03/19/17 03/19/17 03/19/17 03/19/17 14:00 14:30 15:00 15:30 Temp 97.4 97.4 Pulse 101 100 100 97 Resp 21 17 16 17 B/P (MAP) 201/129 (153) Pulse Ox 100 97 94 98 O2 Delivery Room Air 03/19/17 03/19/17 03/19/17 03/19/17 16:00 16:07 16:15 16:34 Pulse 94 95 96 88 Resp 17 16 18 B/P (MAP) 184/120 Pulse Ox 96 96 96 03/19/17 03/19/17 03/19/17 03/19/17 17:15 17:34 18:09 18:15 Pulse 88 89 89 86 Resp 18 20 20 B/P (MAP) 206/137 Pulse Ox 96 95 95 03/19/17 03/19/17 03/19/17 03/19/17 19:04 19:34 20:04 20:34 Pulse 88 86 87 84 Resp 20 20 20 20 Pulse Ox 95 95 96 95 03/19/17 03/19/17 03/20/17 03/20/17 22:54 23:07 02:51 07:00 Temp 97.8 98.0 97.9 97.8 98.0 97.9 Pulse 91 94 84 Resp 18 20 20 B/P (MAP) 178/112 (134) 158/112 (127) 164/116 (132) Pulse Ox 94 96 95 O2 Delivery Room Air Room Air Room Air Room Air 03/20/17 09:47 Pulse 84 B/P (MAP) 164/116 Intake and Output 03/19/17 03/19/17 03/20/17 15:00 23:00 07:00 Intake Total 1000 ml 100 ml Balance 1000 ml 100 ml PORTILLO LOPEZ III DO Mar 20, 2017 10:50
[2017-03-20 11:00] VITALS: BP 165/132
--- NOTE | 2017-03-20 13:48 | RAD ---
INDICATION: TIA, slurred speech, weakness, symptoms for one day. Tremors. TECHNIQUE: Sagittal T1, axial T1, axial T2, axial FLAIR, axial T2 gradient, coronal T2, and diffusion imaging with ADC map was performed. Comparison CT head is from 1 day earlier. FINDINGS: The ventricles and sulci are within normal limits for age. A few scattered FLAIR hyperintensities, for example right frontal white matter, are nonspecific but most suggestive of minimal small vessel ischemic disease. There is no acute intracranial hemorrhage or extra-axial fluid collection. There is no mass effect or midline shift. There is no restricted diffusion to suggest an acute infarct. Sagittal midline structures are unremarkable. Pituitary and suprasellar region are unremarkable. Intracranial flow voids are preserved. There is minimal pansinus mucosal thickening with relative sparing of the sphenoid sinuses. Mastoid air cells are partially opacified. IMPRESSION: 1. No acute intracranial findings. 2. Brain parenchymal volume loss and minimal probable small vessel ischemic disease. Electronically signed by: Jw Yates MD (03/20/2017 1:44 PM) [id number]
--- NOTE | 2017-03-20 16:22 | CARD ---
MR#: [id number] Date of Study: 03/20/2017 Ordering Physician: KEM BARR, Referring Physician: Cristopher AVILES: Kassie Abdalla [facility] APPROVED REPORT EXAM: Two-dimensional and M-mode echocardiogram with Doppler and color Doppler. Other Information Quality : Fair Technically limited study due to body habitus. INDICATION Hypertensive Crisis 2D DIMENSIONS Left Atrium(2D)4.8 (1.6-4.0cm)IVSd1.6 (0.7-1.1cm) LVDd4.7 (3.9-5.9cm)LVOT Diameter2.2 (1.8-2.4cm) PWd1.5 (0.7-1.1cm)LVDs2.8 (2.5-4.0cm) FS (%) 34.0 %SV73.6 ml LVEF(%)65.0 (>50%) M-Mode DIMENSIONS Aortic Root3.67 (2.2-3.7cm) Aortic Valve AoV Peak Bernabe.158.9cm/Clarissa Peak GR.10.1mmHg Mitral Valve MV E Hnxtdwso15.2cm/sMV A Hukwmvop65.5cm/s E/A Ratio0.5 Pulmonary Valve PV Peak Gvajxvxp54.8cm/sPV Peak Grad.4mmHg LEFT VENTRICLE The left ventricle is normal size. There is moderate concentric left ventricular hypertrophy. The lef t ventricular systolic function is normal and the ejection fraction is within normal range. The Eject ion Fraction is 55-60%. There is normal LV segmental wall motion. RIGHT VENTRICLE The right ventricle is normal size. There is normal right ventricular wall thickness. The right ventr icular systolic function is normal. ATRIA The left atrium is mildly dilated. The right atrium size is normal. The interatrial septum is intact with no evidence for an atrial septal defect or patent foramen ovale as noted on 2-D or Doppler imagi ng. AORTIC VALVE The aortic valve is mildly calcified. Doppler and Color Flow revealed no significant aortic regurgita tion. There is no significant aortic valvular stenosis. MITRAL VALVE The mitral valve is normal in structure and function. There is no evidence of mitral valve prolapse. There is no mitral valve stenosis. Doppler and Color Flow revealed trace mitral valve regurgitation. TRICUSPID VALVE The tricuspid valve is normal in structure and function. Doppler and Color Flow revealed no tricuspid valve regurgitation noted. PULMONIC VALVE The pulmonary valve is normal in structure and function. Doppler and Color Flow revealed no pulmonic valvular regurgitation. GREAT VESSELS The aortic root is normal in size. The ascending aorta is normal in size. PERICARDIAL EFFUSION There is no pleural effusion. There is no evidence of significant pericardial effusion. Critical Notification Critical Value: No <Conclusion> The left ventricle is normal size. The left ventricular systolic function is normal and the ejection fraction is within normal range. The Ejection Fraction is 55-60%. There is moderate concentric left ventricular hypertrophy. There is no significant aortic valvular stenosis. Doppler and Color Flow revealed no significant aortic regurgitation. Doppler and Color Flow revealed trace mitral valve regurgitation. Doppler and Color Flow revealed no tricuspid valve regurgitation noted. Signed by : Brady Stanton MD Electronically Approved : 03/20/2017 16:21:35
[2017-03-20] MEDS ORDERED: ATORVASTATIN CALCIUM 10 MG TABLET. PO SCH (21:00)
--- NOTE | 2017-03-21 15:47 | DS ---
DATE OF DISCHARGE: 03/20/2017 ADMISSION DIAGNOSIS: Malignant hypertension. DISCHARGE DIAGNOSES: Resolving malignant hypertension, resolving transient ischemic attack. HOSPITAL COURSE: The patient is a pleasant 52-year-old male presented with malignant hypertension into the 220 systolically. He also had some weakness. He was admitted. We got his pressures under control. We consulted Neurology, did some imaging and everything looks good. He is doing better. We plan to discharge. DISPOSITION: Home. ACTIVITY: As tolerated. DIET: Low sodium. MEDICATIONS: Please see MRAD. TOTAL TIME: 34 minutes. PORTILLO LOPEZ DO DR: KATHY/lis JOB#: [id number] / [id number]
== END 2017-03-20 17:30 | disposition home or self-care (01) | DRG 69 ==
LOC: ER 13:53 → ED HOLD 16:53 → 6 SOUTH 20:42
PROVIDERS: ADMIT Internal Medicine Hematology & Oncology; ATTEND Internal Medicine Hematology & Oncology
DX: G45.9 Transient cerebral ischemic attack, unspecified (principal); E66.01 Morbid (severe) obesity due to excess calories; I16.1 Hypertensive emergency; I10 Essential (primary) hypertension; Z82.49 Family history of ischemic heart disease and other diseases of the circulatory system; Z68.37 Body mass index [BMI] 37.0-37.9, adult; Z83.3 Family history of diabetes mellitus; Z72.0 Tobacco use
CPT/HCPCS: 36415; 70450; 70496; 70498; 70551; 71010; 80053; 80061; 82962; 84484; 85025; 90686; 93005; 93306; 96361; 96374; 96376; J1650; J3490; J7030; Q9967; 99285-25